=== PATIENT | female | born 1995 | race Two or more races ===

== ENCOUNTER 2021-10-03 14:13 | Outpatient (CLI) | payer OTHER | END 2021-10-03 15:40 | disposition home or self-care (01) | LOC: PRENATAL 14:13 | PROVIDERS: ATTEND Obstetrics & Gynecology Maternal & Fetal Medicine | DX: O35.0XX1 Maternal care for (suspected) central nervous system malformation in fetus, fetus 1 (principal); O35.3XX1 Maternal care for (suspected) damage to fetus from viral disease in mother, fetus 1; O98.512 Other viral diseases complicating pregnancy, second trimester; Z36.89 Encounter for other specified antenatal screening; Z3A.22 22 weeks gestation of pregnancy ==

== ENCOUNTER 2022-01-23 08:30 | Inpatient (IN) | payer OTHER ==
[~2022-01-23] VITALS: Ht 160 cm; Wt 4.1 kg
[2022-01-23] MEDS ORDERED: PRENATAL PO (10:47)
[2022-01-24] MEDS ORDERED: PRENATAL + DHA1 EAC1 PO (10:48)
[2022-01-27] MEDS ORDERED: IBUPROFEN600 MG PO (13:39)
[2022-01-27] MEDS ORDERED: DOCUSATE SODIU100 MG PO (13:39)
== END 2022-01-27 13:56 | disposition home or self-care (01) | DRG 785 ==
LOC: OB/GYN 08:30 → O/R 01-24 08:35 → OB/GYN 01-24 10:00
PROVIDERS: ADMIT Obstetrics & Gynecology; ATTEND Obstetrics & Gynecology
PROC: 0UB70ZZ Excision of Bilateral Fallopian Tubes, Open Approach (ICD-10-PCS; 2022-01-24)
PROC: 4A1HXCZ Monitoring of Products of Conception, Cardiac Rate, External Approach (ICD-10-PCS; 2022-01-24)
PROC: 10D00Z1 Extraction of Products of Conception, Low, Open Approach (ICD-10-PCS; principal; 2022-01-24 10:15)
DX: O34.211 Maternal care for low transverse scar from previous cesarean delivery (principal); O36.63X0 Maternal care for excessive fetal growth, third trimester, not applicable or unspecified; Z3A.38 38 weeks gestation of pregnancy; Z37.0 Single live birth; Z20.822 Contact with and (suspected) exposure to COVID-19; Z30.2 Encounter for sterilization